=== PATIENT | female | born 1935 | race Caucasian/White ===

== ENCOUNTER 2018-08-30 19:58 | Emergency (ER) | payer OTHER, MEDICARE ==
--- NOTE | 2018-08-30 20:07 | PDOC ---
History of Present Illness - General History Source: Patient Exam Limitations: No Limitations - History of Present Illness Initial Comments: 08/30/18 21:02 The patient is a 83 year old female with a significant past medical history of osteoarthritis and GERD who presents to the ED with urine changes, loss of appetite and chest discomfort. The patient was prescribed fenofibrate by her PCP 2 weeks ago and has been taking the medication everyday and stopped taking it 2 days ago. Ever since taking the fenofibrate, patient reports darker colored urine, urinary frequency,generalized weakness, a loss of appetite and a decrease in PO intake. Patient also reports mid sternal chest discomfort that she describes as pineapple skin rolling under her skin. She also states she had a sudden onset of sharp cramping abdominal pain last night. Denies fever or chills. Denies nausea, vomiting, or diarrhea. Denies dysuria. Denies any other symptoms. PAST MEDICAL HISTORY: osteoarthritis and GERD PAST SURGICAL HISTORY: Colon surgery, hysterectomy FAMILY HISTORY: no pertinent history SOCIAL HISTORY: Pt lives with family. MEDICATIONS: reviewed ALLERGIES: As per nursing notes General: + generalized weakness, loss of appetite. No fevers or chills, no weight loss HEENT: No change in vision. No sore throat,. No ear pain Cardiovascular: + chest discomfort. No shortness of breath Respiratory:No cough, or wheezing. Gastrointestinal: + abdominal pain. no nausea, vomiting, diarrhea or constipation, No rectal bleeding Genitourinary: + dark colored urine, frequency. No dysuria, hematuria. Musculoskeletal: No joint or muscle pain or swelling Neurologic: No headache, vertigo, dizziness or loss of consciousness Psychiatric: nor depression Skin: No rashes or easy bruising Endocrine: no increased thirst or abnormal weight change Allergic: no skin or latex allergy All other systems reviewed and normal General: Well-nourished well-developed individual, no acute distress HEENT: + dry mucous membranes. Throat: Normal, tonsils normal, no erythema or exudate Neck: Supple, no meningeal signs, no lymphadenopathy Eyes::Pupils equal reactive and round, extraocular motion intact Chest: Nontender to palpation Cardiac: S1-S2 normal, regular rate and rhythm, no murmurs rubs or gallops Respiratory: Lungs clear to auscultation bilateral Abdomen: Soft, nondistended, normal bowel sounds, nontender to palpation diffusely Extremities: Warm, dry, no cyanosis, clubbing, or edema Skin: No rashes Neuro: Alert and oriented x3, nonfocal exam, grossly intact, normal gait Psych: Normal mood and affect <Lida Lei - Last Filed: 08/30/18 21:02> - General History Source: Patient Exam Limitations: No Limitations - History of Present Illness Initial Comments: 08/30/18 23:29 A portion of this note was documented by scribe services under my direction. I have reviewed the details of the note, within reason, and agree with the documentation with the following case summary and management plan written by me. Patient treated in the ED. Nursing notes are reviewed and incorporated into the medical decision-making. Vital signs reviewed. Assessment plan: This is an 83-year-old female who comes in complaining of some comes in her epigastric area. Patient was started on a new medication fenofibrate who has side effects similar to what patient's was experiencing. In addition to that patient had some frequency but no dysuria or hematuria. Workup was initiated including CBC, comp, EKG, chest x-ray, ultrasound gallbladder, cardiac enzymes. Patient had a normal white count Patient's liver enzymes were mildly elevated His EKG showed normal sinus rhythm at a rate of [address]-T wave changes normal EKG Patient's chest x-ray showed no acute pathology On reevaluation patient feels better. Patient's urine was positive for urinary tract infection and she was given Keflex 1 g via IV Patient discharged home on Macrobid Patient will follow-up with her primary care doctor tomorrow or the next day of her blood work <Sixto Reis I - Last Filed: 08/30/18 23:36> - General Chief Complaint: Pain, Acute Stated Complaint: LOSS OF APPETITE SINCE FRIDAY PAIN Time Seen by Provider: 08/30/18 20:06 Past History <Lida Lei - Last Filed: 08/30/18 21:02> - Past Medical History Anemia: Yes (MANY YEARS AGO) Asthma: No Cancer: No Cardiac Disorders: No CVA: No COPD: No CHF: No Dementia: No Diabetes: No GI Disorders: No Disorders: No HTN: No Hypercholesterolemia: No Liver Disease: No Seizures: No Thyroid Disease: No - Surgical History Abdominal Surgery: Yes (SBO 30YEARS AGO) Appendectomy: Yes (AT THE AGE OF 14) Cardiac Surgery: No Cholecystectomy: No Lung Surgery: No Neurologic Surgery: No Orthopedic Surgery: No - Suicide/Smoking/Psychosocial Hx Smoking History: Former smoker Have you smoked in the past 12 months: No Hx Alcohol Use: No Substance Use Type: None Hx Substance Use Treatment: No <Sixto Reis I - Last Filed: 08/30/18 23:36> - Past Medical History Allergies/Adverse Reactions: Allergies Allergy/AdvReac Type Severity Reaction Status Date / Time epinephrine Allergy Intermediate Swelling Verified 08/30/18 21:25 Home Medications: Ambulatory Orders Calcium Carbonate [Calcium] 1,200 mg PO DAILY 12/08/12 Cholecalciferol (Vitamin D3) [Vitamin D] 1,000 unit PO DAILY 12/08/12 Nabumetone 1,000 mg PO DAILY 12/08/12 Oxybutynin Chloride [Ditropan Xl] 5 mg PO HS 12/08/12 Fenofibrate 145 mg PO DAILY 08/30/18 Nitrofurantoin Macrocrystal [Macrodantin] 100 mg PO BID #14 capsule 08/30/18 ED Treatment Course - LABORATORY CBC & Chemistry Diagram: 08/30/18 21:15 08/30/18 21:15 <Sixto Reis I - Last Filed: 08/30/18 23:36> *DC/Admit/Observation/Transfer - Attestations Scribe Attestion: 08/30/18 21:02 Documentation prepared by Lida Lei, acting as medical secretary teacher for Sixto Reis MD <Lida Lei - Last Filed: 08/30/18 21:02> <Sixto Reis I - Last Filed: 08/30/18 23:36> Diagnosis at time of Disposition: Abdominal pain Qualifiers: Abdominal location: upper abdomen, unspecified Qualified Code(s): R10.10 - Upper abdominal pain, unspecified Medication side effects present Qualifiers: Encounter type: initial encounter Qualified Code(s): T50.905A - Adverse effect of unspecified drugs, medicaments and biological substances, initial encounter - Discharge Dispostion Disposition: HOME Condition at time of disposition: Stable - Referrals Referrals: Gallo Nino MD [Primary Care Provider] - - Patient Instructions Additional Instructions: For the urinary tract infection take Macrobid 1 tablet twice a day for 7 days. Make sure you take a probiotic or eat some yogurt with the antibiotic to prevent a yeast infection Return to the emergency department immediately with ANY new, persistent or worsening symptoms. Continue any medications as previously prescribed by your physician. You should follow up with your primary doctor as soon as possible regarding today's emergency department visit. . Please make sure your doctor reviews the results of your emergency evaluation. Thank you for coming to the Emergency Department today for your care. It was a pleasure to see you today. Please note that your evaluation is INCOMPLETE until you follow-up with your doctor. - Post Discharge Activity
[2018-08-30] MEDS ORDERED: SODIUM CHLORIDE 1,000 ML IV SCH (21:15)
[2018-08-30] MEDS ORDERED: SODIUM CHLORIDE 0.9% 500 ML INFUS.BAG IV ONE (21:22)
[2018-08-30 21:34] VITALS: BP 136/63; PULSE 66; TEMP 98.5; BMI 24.0
[2018-08-30 21:47] LABS: URINE COLOR YELLOW
[2018-08-30 21:48] LABS: PH,URINE 5.5 (4.5-8); URINE APPEARANCE SL CLOUDY; URINE BILIRUBIN NEGATIVE (NEGATIVE); URINE GLUCOSE (UA) NEGATIVE (NEGATIVE); URINE KETONE NEGATIVE (NEGATIVE); URINE LEUK ESTERASE 3+ (NEGATIVE); URINE NITRITE NEGATIVE (NEGATIVE); URINE PROTEIN NEGATIVE (NEGATIVE); URINE UROBILINOGEN 0.2 (0.2-1.0)
[2018-08-30 21:52] LABS: ALBUMIN 3.5 g/dl (3.4-5.0); ALK PHOS 96 U/L (45-117); ANION GAP 12 MMOL/L (8-16); BILIRUBIN,TOTAL 0.9 mg/dl (0.2-1); BLOOD UREA NITROGEN 13 mg/dl (7-18); CALCIUM 9.6 mg/dl (8.5-10); CHLORIDE 103 mmol/L (98-107); CO2 23 mmol/L (21-32); CREATININE 0.8 mg/dl (0.55-1.3); GLUCOSE,RANDOM 93 mg/dl (74-106); SGOT/AST 122 U/L (15-37); SGPT/ALT 179 U/L (13-61); SODIUM 138 mmol/L (136-145); TOT PROT 6.8 g/dl (6.4-8.2)
[2018-08-30 21:53] LABS: EPI CELLS 1+ /HPF; URINE BACTERIA 2+ /hpf (NEGATIVE); URINE WBC 40-60 (0-5)
[2018-08-30 21:58] LABS: BASO % 0.9 % (0-2.0); EOS % 9.8 % (0-4.5); HEMATOCRIT 38.5 % (32.4-45.2); HEMOGLOBIN 12.8 GM/dl (10.7-15.3); MCH 29.1 pg (25.7-33.7); MCHC 33.2 g/dl (32.0-36.0); MEAN CELL VOLUME 87.8 fl (80-96); MEAN PLT VOLUME 10.7 fl (7.5-11.1); MONO % 10.9 % (3.8-10.2); NEUT % 54.4 % (42.8-82.8); PLATELET COUNT 281 K/MM3 (134-434); RBC 4.39 M/mm3 (3.60-5.2); RDW 13.5 % (11.6-15.6); WHITE BLOOD COUNT 7.3 K/mm3 (4.0-10.8)
[2018-08-30] MEDS ORDERED: CEFTRIAXONE 1 GM in DEXTROSE 5%-WATER - 100 ML IVPB ONE (22:15)
[2018-08-30] MEDS ORDERED: cefTRIAXone SODIUM 1 GM VIAL ONE (22:16)
[2018-08-30 23:52] LABS: LIPASE 139 U/L (73-393)
--- NOTE | 2018-08-31 10:38 | EKG ---
Test Reason : Blood Pressure : / mmHG Vent. Rate : 068 BPM Atrial Rate : 068 BPM P-R Int : 206 ms QRS Dur : 082 ms QT Int : 422 ms P-R-T Axes : 039 006 026 degrees QTc Int : 448 ms NORMAL SINUS RHYTHM NORMAL ECG NO PREVIOUS ECGS AVAILABLE Confirmed by GRICEL YARBROUGH MD ([id number]) on 08/31/2018 10:37:59 AM Referred By: MICHELLE BADILLO Confirmed By:GRICEL YARBROUGH MD
== END 2018-08-30 23:38 | disposition home or self-care (01) ==
LOC: FER 19:58
PROC: 3E03329 Introduction of Other Anti-infective into Peripheral Vein, Percutaneous Approach (ICD-10-PCS; principal; 2018-08-30)
PROC: 3E0337Z Introduction of Electrolytic and Water Balance Substance into Peripheral Vein, Percutaneous Approach (ICD-10-PCS; 2018-08-30)
DX: R10.10 Upper abdominal pain, unspecified (principal); T50.905A Adverse effect of unspecified drugs, medicaments and biological substances, initial encounter; M19.90 Unspecified osteoarthritis, unspecified site; K21.9 Gastro-esophageal reflux disease without esophagitis
CPT/HCPCS: 36415; 71045-TC-FY; 76705-TC; 80053; 81003; 81015; 82550; 83690; 84484; 85025; 87086; 87186; 93005; 99282-25

== ENCOUNTER 2019-07-31 11:00 | Emergency (ER) | payer OTHER, MEDICARE ==
[2019-07-31 11:17] VITALS: TEMP 98; BMI 28.3
--- NOTE | 2019-07-31 11:27 | PDOC ---
History of Present Illness - General Chief Complaint: Injury Stated Complaint: FALL Time Seen by Provider: 07/31/19 11:13 - History of Present Illness Initial Comments: 07/31/19 11:51 Chief complaint: Facial injury HPI: Patient was finishing her shower this morning, felt faint, fell over the edge of the tub and struck her face on the floor. Possibly momentary loss of consciousness but regained consciousness immediately, felt generally weak without focal deficit, but was able to stand up, get dressed, walked to a chair and call her daughter. Her daughter found her dressed, alert, with normal mental status, complaining only of pain across the bridge of her nose and her right knee. Review of systems: Denies recent fever/chills, URI symptoms, sore throat, cough , chest pain, shortness of breath, abdominal pain, nausea, vomiting, diarrhea, visual or focal neurologic symptoms, unsteadiness of gait, urinary tract symptoms, vaginal bleeding or discharge. Remainder systems reviewed and negative Past medical history: Patient's general health is good, only medical problems appear to be osteoporosis and irritable bladder. Takes oxybutynin and occasionally a nonsteroidal anti-inflammatory for various aches and pains. Social history: Lives alone, cares for herself, fully ambulatory, daughters live nearby and check in frequently. Has had no recent illnesses Family history: Reviewed and noncontributory including early coronary artery disease, metabolic diseases including diabetes, cancer, neurologic diseases including aneurysm. Physical exam: Alert oriented x3 well-developed well-nourished appears less than her age, no acute distress, cheerful and cooperative Afebrile, vital signs normal Head atraumatic. PERRLA 4 mm, fundi benign with sharp disc margins and good central venous pulsations. EOMs full without diplopia. Visual armando intact to confrontation. ENT mild tenderness and swelling over the bridge of the nose, without significant deformity. No bleeding is noted. No septal deviation or septal hematoma Neck without tenderness or deformity. However, there is mild stiffness with flexion and extension limiting full range of motion. This may be chronic, since there is no associated pain with movement Chest clear to PNA, full breath sounds bilaterally, no wheezes rales or rhonchi. No chest wall or rib cage tenderness or deformity. No tachypnea or dyspnea CV regular 60/min. No murmurs rubs or gallops. Pulses full and symmetric. No JVD or edema. No bruits Abdomen soft nontender without mass organomegaly. No CVAT. Spine and pelvis without point tenderness, deformity, or inflammatory changes Full range of motion of both hips in internal and external rotation without limitation and without pain. Full range of motion without abnormality of the shoulders as well Extremities small 1 cm contusion and ecchymosis medial border of the right patella. However, there is no swelling, effusion, limited range of motion, ligament laxity or stress tenderness, or tenderness of the patella/patellar retinaculum. Distal pulses are full and there is no distal sensory deficit Neurological C2 to 12 intact. Strength full and symmetric. No focal sensory or motor deficits. Cerebellar function intact. Gait stable and unimpaired. Impression: Momentary loss of consciousness in the bathroom while showering. Most likely vasovagal syncope. Minor contusions of the bridge of the nose and right knee. No serious injuries are apparent. Rule out occult cardiac or neurological event, dehydration or other metabolic derangement, occult UTI Plan: CBC, chemistries, cardiac enzymes and EKG, head CT and neck CT. And further evaluation depending on results. Lungs are clear and there are no pulmonary symptoms, to defer chest x-ray at present. Past History - Past Medical History Allergies/Adverse Reactions: Allergies Allergy/AdvReac Type Severity Reaction Status Date / Time epinephrine Allergy Intermediate Swelling Verified 07/31/19 11:03 Home Medications: Ambulatory Orders Nabumetone 500 mg PO BID 07/31/19 Oxybutynin Chloride [Oxybutynin Chloride ER] 10 mg PO DAILY 07/31/19 Anemia: Yes (MANY YEARS AGO) Asthma: No Cancer: No Cardiac Disorders: No CVA: No COPD: No CHF: No Dementia: No Diabetes: No GI Disorders: No Disorders: No HTN: No Hypercholesterolemia: No Liver Disease: No Seizures: No Thyroid Disease: No Other medical history: OSTEOPOROSIS - Surgical History Abdominal Surgery: Yes (SBO 30YEARS AGO) Appendectomy: Yes (AT THE AGE OF 14) Cardiac Surgery: No Cholecystectomy: No Lung Surgery: No Neurologic Surgery: No Orthopedic Surgery: No - Psycho Social/Smoking Cessation Hx Smoking History: Never smoked Have you smoked in the past 12 months: No If you are a former smoker, when did you quit?: 40 Information on smoking cessation initiated: No Hx Alcohol Use: No Drug/Substance Use Hx: No Substance Use Type: None Hx Substance Use Treatment: No *Physical Exam - Vital Signs Last Vital Signs Temp Pulse Resp BP Pulse Ox 98 F 60 18 154/77 96 07/31/19 11:00 07/31/19 11:00 07/31/19 11:00 07/31/19 11:00 07/31/19 11:00 ED Treatment Course - LABORATORY CBC & Chemistry Diagram: 07/31/19 11:45 07/31/19 11:45 Medical Decision Making - Medical Decision Making 07/31/19 11:48 EKG shows mild sinus bradycardia 58/min. Otherwise normal EKG. 07/31/19 13:44 CT of the head and and cervical spine are clear CBC and chemistries, cardiac enzymes without significant abnormalities Patient feeling much better. No significant pain in the face of the knee. Neurologically remains intact. Vasovagal syncope most likely etiology. Minor contusions of the knee and face. 07/31/19 13:50 Discharged ambulatory with 2 daughters to follow-up with Dr. Nino or return to the ER if there are further symptoms. Instructed regarding means to minimize vasovagal episodes. Discharge - Discharge Information Problems reviewed: Yes Clinical Impression/Diagnosis: Vasovagal syncope, Multiple contusions Condition: Improved Disposition: HOME - Admission No - Follow up/Referral Referrals: Gallo Nino MD [Primary Care Provider] - 3 days - Patient Discharge Instructions Patient Printed Discharge Instructions: DI for Syncope in Adults (Fainting), Contusion Additional Instructions: Apply ice to the bridge of the nose and the knee to reduce pain swelling and inflammation. Take 2 regular strength Tylenol every 4-6 hours as needed for headache or other pain If symptoms worsen or additional symptoms develop, return immediately to the emergency room. Otherwise follow-up with primary care physician in 2 to 3 days.. Blood pressure may be elevated from her usual level due to the stress of her episode and the minor pain and bruises that she is experiencing. It is not high enough to cause concern, but should be checked frequently until it returns to her normal levels. - Post Discharge Activity
[2019-07-31] MEDS ORDERED: SODIUM CHLORIDE 500 ML IV STA (11:28)
[2019-07-31 12:08] LABS: EOS % 1.9 % (0-4.5); HEMATOCRIT 39.5 % (32.4-45.2); HEMOGLOBIN 12.9 GM/dl (10.7-15.3); MCHC 32.6 g/dl (32.0-36.0); MEAN PLT VOLUME 11.4 fl (7.5-11.1); MONO % 7.5 % (3.8-10.2); NEUT % 74.6 % (42.8-82.8); PLATELET COUNT 237 K/MM3 (134-434); RBC 4.44 M/mm3 (3.60-5.2); RDW 12.9 % (11.6-15.6); WHITE BLOOD COUNT 10.7 K/mm3 (4.0-10.8)
[2019-07-31 12:12] LABS: ALBUMIN 3.6 g/dl (3.4-5.0); BILIRUBIN,TOTAL 0.6 mg/dl (0.2-1); CALCIUM 8.7 mg/dl (8.5-10); CREATININE 0.7 mg/dl (0.55-1.3); TOT PROT 6.6 g/dl (6.4-8.2)
[2019-07-31] MEDS ORDERED: ACETAMINOPHEN 325 MG TABLET (FP) ONE (12:56)
[2019-07-31 13:08] VITALS: BP 134/84; PULSE 61
[2019-07-31] MEDS ORDERED: ACETAMINOPHEN 325 MG TABLET (FP) PO ONE (13:12)
--- NOTE | 2019-07-31 13:16 | EKG ---
Test Reason : Blood Pressure : / mmHG Vent. Rate : 058 BPM Atrial Rate : 058 BPM P-R Int : 200 ms QRS Dur : 082 ms QT Int : 492 ms P-R-T Axes : 031 008 035 degrees QTc Int : 482 ms SINUS BRADYCARDIA OTHERWISE NORMAL ECG WHEN COMPARED WITH ECG OF 30-AUG-2018 20:48, NO SIGNIFICANT CHANGE WAS FOUND Confirmed by ROSIE DANIEL MD ([id number]) on 07/31/2019 1:16:35 PM Referred By: YIFAN GIL Confirmed By:ROSIE DANIEL MD
== END 2019-07-31 13:50 | disposition home or self-care (01) ==
LOC: FER 11:00
PROC: 3E0337Z Introduction of Electrolytic and Water Balance Substance into Peripheral Vein, Percutaneous Approach (ICD-10-PCS; principal; 2019-07-31)
DX: R55 Syncope and collapse (principal); T14.8XXA Other injury of unspecified body region, initial encounter; W18.39XA Other fall on same level, initial encounter; Y93.E1 Activity, personal bathing and showering; Y92.002 Bathroom of unspecified non-institutional (private) residence as the place of occurrence of the external cause; Z88.8 Allergy status to other drugs, medicaments and biological substances; Z87.891 Personal history of nicotine dependence; M81.0 Age-related osteoporosis without current pathological fracture; K92.9 Disease of digestive system, unspecified
CPT/HCPCS: 36415; 70450-TC; 72125-TC; 80053; 81003; 82550; 82553; 84484; 85025; 93005; 99285-25